=== PATIENT | female | born 1995 | race African-American/Black ===

== ENCOUNTER 2017-11-16 03:16 | Emergency (ER) | payer SELFPAY ==
[~2017-11-16] VITALS: Ht 175.3 cm; Wt 68.0 kg
[2017-11-16] MEDS ORDERED: TETANUS, DIPHTHERIA, PERTUSSIS VAC/PF 0.5ML (>7YR OLD) IM ONE (08:45)
[2017-11-16] MEDS ORDERED: HYDROCODONE/ACETAMINOPHEN 5/325MG TABLET PO ONE (11:00)
[2017-11-16 11:09] VITALS: BP 100/57
== END 2017-11-16 11:53 | disposition home or self-care (01) ==
LOC: ER 03:16
DX: S02.2XXA Fracture of nasal bones, initial encounter for closed fracture (principal); S40.211A Abrasion of right shoulder, initial encounter; M25.561 Pain in right knee; Y04.0XXA Assault by unarmed brawl or fight, initial encounter; Y93.89 Activity, other specified; Y92.89 Other specified places as the place of occurrence of the external cause
CPT/HCPCS: 70486; 72040; 73562; 81025; 90471; 90715; 99284